=== PATIENT | male | born 1960 | race Caucasian/White ===

== ENCOUNTER → 2017-09-09 | Outpatient (CLI) | payer OTHER | LOC: M LRY 13:19 | DX: R50.9 Fever, unspecified (principal) ==

== ENCOUNTER → 2017-09-09 | Outpatient (REF) | payer OTHER | LOC: M SFHCLERA 13:26 | DX: R50.9 Fever, unspecified (principal) ==

== ENCOUNTER 2018-09-01 15:35 | Inpatient (IN) | payer OTHER ==
[~2018-09-01] VITALS: Ht 188 cm; Wt 119.2 kg
[~2018-09-01 15:35] MED LIST: B-100 OR; COLA100C2 OR; COLA50CA3 PO; COMPOUND CREAM TOP; FLEXERIL; IBUP800T OR; IBUP800T PO; MELOPOW; META800T82 PO; METH-447 PO; MOBIC OR; MULTIVIT OR; OXYC1TAB15 PO; PERC5TAB8; PERC5TAB8 PO; SKEL800T5 OR; SOMA350T PO; combination cream EXT
[2018-09-01] MEDS ORDERED: NS 1,000 ML IV ONE (16:30)
[2018-09-01] MEDS ORDERED: KETOROLAC 30 MG/ML VIAL (J1885) IV ONE (16:30)
[2018-09-01] MEDS ORDERED: ONDANSETRON 4MG/2ML VIAL (J2405) IV ONE (16:30)
[2018-09-01 17:24] LABS: BASO # 0.1 10^3/uL (0.0-0.2); BASO % 0.9 % (0.0-1.0); EOS # 0.2 10^3/uL (0.0-0.50); EOS % 4.2 % (0.0-3.0); HEMATOCRIT 45.4 % (42.0-52.0); HEMOGLOBIN 15.2 g/dl (13.5-17.5); LYMPH % 17.8 % (24.0-44.0); MEAN CORPUSCULAR HEMOGLOBIN 30.5 pg (27.0-33.0); MEAN CORPUSCULAR HGB CONC 33.5 g/dl (32.0-36.5); MEAN CORPUSCULAR VOLUME 91.2 fl (80.0-96.0); MONO # 0.4 10^3/uL (0.0-0.8); MONO % 8.1 % (0.0-5.0); NEUTROPHILS # 3.7 10^3/uL (1.8-7.7); NEUTROPHILS % 68.6 % (36.0-66.0); PLATELET COUNT, AUTOMATED 265 10^3/uL (150-450); RED BLOOD COUNT 4.98 10^6/uL (4.30-6.10); WHITE BLOOD COUNT 5.5 10^3/uL (4.0-10.0)
[2018-09-01 17:57] LABS: ALBUMIN 4.2 GM/DL (3.2-5.2); ALT/SGPT 975 U/L (12-78); BILIRUBIN,DIRECT 3.7 MG/DL (0.0-0.2); BLOOD UREA NITROGEN 12 MG/DL (7-18); CALCIUM LEVEL 9.2 MG/DL (8.5-10.1); CARBON DIOXIDE LEVEL 29 MEQ/L (21-32); CHLORIDE LEVEL 101 MEQ/L (98-107); CREATININE FOR GFR 1.08 MG/DL (0.70-1.30); GLOMERULAR FILTRATION RATE > 60.0 (>56); GLUCOSE, FASTING 106 MG/DL (70-100); LIPASE 139 U/L (73-393); SODIUM LEVEL 135 MEQ/L (136-145); TOTAL PROTEIN 7.1 GM/DL (6.4-8.2)
[2018-09-01] MEDS ORDERED: ZETI10TA30 PO (18:27)
[2018-09-01] MEDS ORDERED: PANT40TA3 PO (18:27)
[2018-09-01] MEDS ORDERED: FERR240T PO (18:27)
[2018-09-01] MEDS ORDERED: OXYC-517 PO (18:27)
[2018-09-01] MEDS ORDERED: FISH1000 PO (18:27)
[2018-09-01] MEDS ORDERED: PEPC10TA6 PO (18:27)
[2018-09-01] MEDS ORDERED: LEVO25TA34 PO (18:27)
[2018-09-01] MEDS ORDERED: MULTCAP PO (18:27)
[2018-09-01] MEDS ORDERED: LEVO100T54 PO (18:37)
--- NOTE | 2018-09-01 20:35 | HPEPDOC ---
General Date of Admission September 01, 2018 at 19:56 Attending Physician: OK TOBAR MD Chief Complaint The patient is a 58-year-old male admitted with a reason for visit of Acute Cholesystitis. History of Present Illness Patient is a 58-year-old male, past medical history significant for HLD, cervical disc disease with cervical radiculopathy. Patient presented to the emergency room from urgent care for evaluation of bilirubin in urine and abdominal pain. Patient reports he has had abdominal discomfort off and on for 2 years and had [facility]. In the past 4 days, his pain got worse and in the past 2 days. Nausea and significant abdominal pain. Today patient went to void and noticed his urine was very black and decided to go to the urgent care for further evaluation. From urgent care. He was sent to the emergency room for evaluation of bilirubin in his urine in the setting of abdominal pain. Ultrasound was abnormal for acute cholecystitis with duct obstruction. On assessment lab data was significant for total bilirubin of 6.0, direct bilirubin 3.7, AST 770, ALC 975, alkaline phosphatase 187. Hematology panel was remarkable for high neutrophil count of 68.6. Home Medications Scheduled Ezetimibe (Zetia) 10 Mg Tablet, 10 MG PO DAILY, (Reported) Ferrous Gluconate (Ferrous Gluconate) 240 Mg Tablet, 240 MG PO DAILY, (Reported) Levothyroxine Sodium (Levoxyl) 100 Mcg Tablet, 100 MCG PO DAILY, (Reported) Multivitamin (Multivitamins) 1 Each Capsule, 1 CAP PO DAILY, (Reported) [place]-3 Fatty Acids/Fish Oil (Fish Oil 1,000 mg Capsule) 1 Each Capsule, 1,000 MG PO DAILY, (Reported) Pantoprazole Sodium (Pantoprazole Sodium) 40 Mg Tablet.dr, 40 MG PO DAILY, (Reported) PATIENT IS OUT OF THIS MEDICATION AND HAS BEEN TAKING PEPCID Scheduled PRN Famotidine (Pepcid AC) 10 Mg Tablet, 10 MG PO BID PRN for HEARTBURN/INDIGESTION, (Reported) Oxycodone HCl (Oxycodone HCl) 5 Mg Tablet, 5 MG PO QID PRN for PAIN, (Reported) Allergies Coded Allergies: No Known Allergies (Unverified , 09/01/18) Past Medical History Medical History Cervical disc disease Hyperlipidemia Surgical History Left knee replacement. Right shoulder rotator cuff repair. Tonsils. Rhinoplasty. Family History Patient was adopted Social History * Smoker: Denies, chew Alcohol: occationally Drugs: denies A-FIB/CHADSVASC A-FIB History Current/History of A-Fib/PAF?: No Current Oral Anticoagulant The: No Review of Systems Other systems A 10 point pertinent review of systems was completed, negative except as stated in the history of present illness Physical Examination Other physical findings GENERAL: NAD SKIN : Jaundiced looking Warm, dry intact HEENT: Atraumatic, normocephalic, PERRL, moist mucous membrane CARDIOVASCULAR: Regular rate and rhythm, S1S2, no JVD, no edema, distal pulses + and palpable RESP: CTAB, no accessory muscle use noted ABDOMEN: BS+ non distended +tender RUQ MS: no joint deformities NEURO: Alert and oriented x 3, CN2-12 grossly intact PSYCH: no anxiety or agitation, appropriate mood and affect. Vital Signs Vital Signs Date Time Temp Pulse Resp B/P (MAP) Pulse Ox O2 Delivery O2 Flow Rate FiO2 09/01/18 17:41 98.2 54 18 144/84 (104) 98 Room Air Laboratory Data Labs 24H Laboratory Tests 2 09/01/18 00:00: Urine Color YELLOW, Urine Appearance CLEAR, Urine pH 6.0, Urine Specific [place] 1.002, Urine Protein NEGATIVE, Urine Glucose (UA) NEGATIVE, Urine Ketones NEGATIVE, Urine Blood NEGATIVE, Urine Nitrite NEGATIVE, Urine Bilirubin NEGATIVE, Urine Urobilinogen 0.2, Urine Leukocyte Esterase NEGATIVE, Urine WBC (Auto) 1, Urine RBC (Auto) 0, Urine Hyaline Casts (Auto) 0, Urine Bacteria (Aut o) NEGATIVE, Urine Squamous Epithelial Cells 0, Urine Sperm (Auto) 09/01/18 16:24: Immature Granulocyte % (Auto) 0.4, White Blood Count 5.5, Red Blood Count 4.98, Hemoglobin 15.2, Hematocrit 45.4, Mean Corpuscular Volume 91.2, Mean Corpuscular Hemoglobin 30.5, Mean Corpuscular Hemoglobin Concent 33.5, Red Cell Distribution Width 13.4, Platelet Count 265, Neutrophils (%) (Auto) 68.6H, Lymphocytes (%) (Auto) 17.8L, Monocytes (%) (Auto) 8.1H, Eosinophils (%) (Auto) 4.2H, Basophils (%) (Auto) 0.9, Neutrophils # (Auto) 3.7, Lymphocytes # (Auto) 1.0L, Monocytes # (Auto) 0.4, Eosinophils # (Auto) 0.2, Basophils # (Auto) 0.1, Nucleated Red Blood Cells % (auto) 0.0, Anion Gap 5L, Glomerular Filtration Rate > 60.0, Lactic Acid Level 1.0, Calcium Level 9.2, Aspartate Amino Transf (AST/SGOT) 770H, Alanine Aminotransferase (ALT/SGPT) 975H, Alkaline Phosphatase 187H, Total Bilirubin 6.0H, Direct Bilirubin 3.7H, Total Protein 7.1, Albumin 4.2, Albumin/Globulin Ratio 1.45, Lipase 139 CBC/BMP Laboratory Tests 09/01/18 16:24 Red Blood Count 4.98, Mean Corpuscular Volume 91.2, Mean Corpuscular Hemoglobin 30.5, Mean Corpuscular Hemoglobin Concent 33.5, Red Cell Distribution Width 13.4, Neutrophils (%) (Auto) 68.6 H, Lymphocytes (%) (Auto) 17.8 L, Monocytes (%) (Auto) 8.1 H, Eosinophils (%) (Auto) 4.2 H, Basophils (%) (Auto) 0.9, Neutrophils # (Auto) 3.7, Lymphocytes # (Auto) 1.0 L, Monocytes # (Auto) 0.4, Eosinophils # (Auto) 0.2, Basophils # (Auto) 0.1 Problems (1) Acute cholecystitis Problem Text: -Keep nothing by mouth -Normal saline at 150 mL per hour -ERCP tomorrow has been discussed with GI specialist -Patient has been started on antibiotic therapy with Zosyn -Follow ERCP findings and recommendations by specialists - (2) Common bile duct (CBD) obstruction Status: Acute Problem Text: -With acute cholecystitis -Antibiotic therapy with the plan for ERCP tomorrow -Has been discussed with surgical team who will see patient in consultation for input and recommendations -Continue to keep nothing by mouth for now (3) Nausea Problem Text: -Zofran as needed every 4 hours (4) Hyperlipidemia Problem Text: -Resume medication. Once patient is able to tolerate oral diet (5) DVT prophylaxis Problem Text: -lovenox SQ daily -hold for surgical intervention (6) Advance care planning Problem Text: -code status is full code Plan / VTE VTE Prophylaxis Ordered?: Yes OTUBELU,ADAORA C. WATCH TRAIN ASSEMBLER September 01, 2018 20:35
[2018-09-01] MEDS ORDERED: ONDANSETRON 4MG/2ML VIAL (J2405) IV PRN (20:45)
[2018-09-01] MEDS ORDERED: ENOXAPARIN 40 MG/0.4 ML SYRINGE (J1650) SC SCH (21:00)
[2018-09-01] MEDS: PIPERACILLIN/TAZOBACTAM SOD 3.375 GM in D5W MINI-BAG PLUS 50 ML IV SCH (21:39)
[2018-09-01] MEDS: NS 1,000 ML IV SCH (21:39)
[2018-09-01 22:13] VITALS: BP 136/82
--- NOTE | 2018-09-01 22:27 | REPVR ---
EXAM: MR Abdomen Without Contrast EXAM DATE/TIME: 09/01/2018 9:14 PM CLINICAL HISTORY: 58 years old, male; Pain and abnormal findings; Abnormal radiologic finding of the abdomen; Radiologic exam and body structure: US gb; Abdominal pain; Flank; Right upper quadrant (ruq); Additional info: Acute cholecystitis TECHNIQUE: Imaging protocol: MR of the abdomen without contrast. 3D rendering: MIP reconstructed images were created and reviewed. COMPARISON: GALLBLADDER US 09/01/2018 5:15 PM FINDINGS: Liver: There is a 8mm T2 hyperintense lesion noted in the lateral segment of the left lobe of the liver beneath the liver capsule. Gallbladder and bile ducts: The common bile duct measures 1.6 cm. The gallbladder is distended. There is mild gallbladder wall thickening in the hepatic cholecystic space. No gallstones are seen. The common bile duct tapers normally. Pancreas: There is no pancreatic ductal dilatation. No mass seen. Spleen: Unremarkable. No splenomegaly. Adrenals: Unremarkable. No mass. Kidneys and ureters: A 7 mm T2 hyperintense lesion seen in the lower pole of the right kidney. 2 T2 hyperintense lesion seen in the upper pole of the right kidney. One measures 1 cm and a second 4 mm. There is mild dilatation of the central renal pelvis of the left kidney or a parapelvic cyst. Stomach and bowel: Unremarkable. Intraperitoneal space: No fluid collection. Arteries: No abdominal aortic aneurysm. Soft tissues: Unremarkable. IMPRESSION: 1. Dilated common bile duct and mild intrahepatic ductal dilatation with mild gallbladder wall thickening. No gallstones seen. No choledocholithiasis. Distal biliary stricture, or neoplasm are among the diagnostic considerations. No choledocholithiasis seen. 2. 3 T2 hyperintense lesions seen in the right kidney. Left-sided dilated renal pelvis versus parapelvic cyst. Please see below comment section per recommendations on follow 3. 8mm T2 hyperintense lesion in the lateral segment of left lobe of the liver. This is not fully characterized on this examination. Followup MR examination in one year. COMMENT: Consistent with the [employer]'s Incidental Findings Committee Report (J Am Jadon Radiol 2010): Unless the patient's specific circumstances suggest otherwise, any liver lesion 0.5 cm or less, any cystic kidney lesion less than 1.0 cm, and/or any adrenal lesion 1.0 cm or less not otherwise characterized in this report as possessing suspicious or indeterminate imaging features is/are highly likely to be benign and do not require follow-up imaging or biopsy. Electronically signed by: Glendy Mcclain On 09/01/2018 22:26:23 PM
[2018-09-01] MEDS: MORPHINE 4 MG/ML 1ML VIAL/SYRINGE (J2270) IV PRN (22:49)
[2018-09-02 02:00] VITALS: BP 141/76
[2018-09-02] MEDS: PIPERACILLIN/TAZOBACTAM SOD 3.375 GM in D5W MINI-BAG PLUS 50 ML IV SCH ×4 (02:08→20:35)
[2018-09-02] MEDS: MORPHINE 4 MG/ML 1ML VIAL/SYRINGE (J2270) IV PRN ×5 (02:46→22:57)
[2018-09-02 05:56] LABS: HEMATOCRIT 38.7 % (42.0-52.0); HEMOGLOBIN 12.6 g/dl (13.5-17.5); MEAN CORPUSCULAR HEMOGLOBIN 29.6 pg (27.0-33.0); MEAN CORPUSCULAR HGB CONC 32.6 g/dl (32.0-36.5); MEAN CORPUSCULAR VOLUME 90.8 fl (80.0-96.0); PLATELET COUNT, AUTOMATED 195 10^3/uL (150-450); RED BLOOD COUNT 4.26 10^6/uL (4.30-6.10); WHITE BLOOD COUNT 4.6 10^3/uL (4.0-10.0)
[2018-09-02 06:00] VITALS: BP 119/80
[2018-09-02 06:34] LABS: ALBUMIN 3.1 GM/DL (3.2-5.2); BILIRUBIN,TOTAL 4.8 MG/DL (0.2-1.0); CALCIUM LEVEL 7.7 MG/DL (8.5-10.1); CREATININE FOR GFR 1.42 MG/DL (0.70-1.30); GLOMERULAR FILTRATION RATE 54.9 (>56); POTASSIUM SERUM 4.3 MEQ/L (3.5-5.1); TOTAL PROTEIN 6.1 GM/DL (6.4-8.2)
[2018-09-02] MEDS: NS 1,000 ML IV SCH ×4 (06:34→20:36)
[2018-09-02] MEDS ORDERED: ONDANSETRON 4MG/2ML VIAL (J2405) As Ordered ONE ×2 (07:19→11:26)
[2018-09-02] MEDS ORDERED: dexameTHASONE 4 MG/ML 1ML VIAL (J1100) As Ordered ONE (07:19)
[2018-09-02] MEDS ORDERED: ROCURONIUM BROMIDE 50 MG/5 ML VIAL As Ordered ONE (07:19)
[2018-09-02] MEDS ORDERED: LIDOCAINE 2% INJ 100 MG/5 ML SDV (FOR ANES.) As Ordered ONE (07:19)
--- NOTE | 2018-09-02 07:57 | REP ---
REASON: Right upper quadrant pain. There are no priors for comparison. Multiple sonographic images of the liver show the hepatic parenchymal echo pattern to be within normal limits. There is intrahepatic and extrahepatic ductal dilatation. The common bile duct measures 12 mm. The gallbladder is somewhat enlarged and hydropic in appearance with a thickened wall measuring 6 mm. There is no pericholecystic edema. Low level echoes are seen throughout the dependent portion of the gallbladder consistent with sludge. The technologist has indicated that the patient has a positive sonographic Curran sign. The imaged portion of the pancreas and right kidney are unremarkable. IMPRESSION: There is evidence of gallbladder disease as described above. Whether this represents acute disease or chronic disease or acute disease on chronic change cannot be determined by this exam. This needs to be correlated clinically. Electronically Signed by Kaiden Brown DO 09/02/2018 08:30 A
[2018-09-02] MEDS: PANTOPRAZOLE 40MG INJ (PROTONIX) (C9113) IV SCH (09:00)
[2018-09-02] MEDS ORDERED: PROPOFOL 200 MG/20 ML VIAL As Ordered ONE (09:04)
[2018-09-02] MEDS ORDERED: fentaNYL 100 MCG/2 ML INJECTION (J3010) As Ordered ONE (09:04)
[2018-09-02] MEDS ORDERED: MIDAZOLAM INJ 2 MG/2 ML VIAL (J2250) As Ordered ONE (09:05)
[2018-09-02] MEDS ORDERED: ISOVUE-300 61% 50ML VIAL (Q9967) As Ordered ONE (09:14)
[2018-09-02] MEDS ORDERED: SUGAMMADEX SODIUM 500 MG/5 ML VIAL (BRIDION) As Ordered ONE (10:40)
[2018-09-02] MEDS ORDERED: ONDANSETRON 4MG/2ML VIAL (J2405) IV PRN (11:30)
[2018-09-02] MEDS ORDERED: LR 1,000 ML IV SCH (11:30)
[2018-09-02] MEDS ORDERED: fentaNYL 100 MCG/2 ML INJECTION (J3010) IV PRN (11:30)
[2018-09-02] MEDS ORDERED: NORCO, ANEXSIA 5/325MG TABLET (HYDROcodone/ACETAMINOPHEN) PO PRN (11:30)
--- NOTE | 2018-09-02 11:37 | REP ---
41 spot views were obtained during intraoperative ERCP. 2 minutes and 34 seconds of fluoroscopy time was provided Dr. Kent for the exam. Varying stages of opacification of the common bile duct is noted throughout the examination. Final image shows a common bile duct stent in place. Electronically Signed by Kaiden Brown DO 09/02/2018 11:42 A
--- NOTE | 2018-09-02 12:08 | IPNPDOC ---
Date Seen The patient was seen on 09/02/18. Progress Note SUBJECTIVE: Patient was seen and examined this morning. He continues to complain of pain in his right upper quadrant. He states that the pain seems to worsen when he leans forward. He denies fevers, chills, nausea, or vomiting. There have been no adverse events reported overnight. OBJECTIVE PHYSICAL EXAMINATION: VITAL SIGNS: Please see below. GENERAL: Awake, alert, and oriented. Appears in no acute distress. Lying in bed. Appears comfortable HEENT: Atrumatic, normocephalic. Eyes are nonicteric. trachea is midline. Dentition is good CARDIOVASCULAR: Normal S1, S2. Regular rate and rhythm. No clicks rubs or murmurs. RESPIRATORY: Clear vesicular breath sounds bilaterally with good respiratory effort. No wheezes, rhonci, or rales ABDOMINAL: Soft, nondistended. Tenderness to palpation of right upper quadrant. No rebound tenderness. No guarding. No masses or hernias. Positive bowel sounds EXTREMITIES: No edema. Full and equal pulses in bilateral upper and lower extremities NEUROLOGICAL: No focal neurological deficits PSYCHOLOGICAL: Mood and affect appear appropriate LABORATORY DATA, IMAGING STUDIES, MICROBIOLOGY: Please see below. DVT prophylaxis ordered?: YES ASSESSMENT AND PLAN: Patient is a 58 year old male with a past medical history significant for hyperlipidemia, cervical disc disease w/ cervical radiculopathy who presented to the [facility] ER with abdominal pain. Patient has a history of abdominal pain on and off for at least the past two years. In the ER the patient had elevated bilirubin, LFT's and WBC. He had a gallbladder ultrasound consistent with acute cholecystitis PROBLEMS: 1. Acute Choleycystits -Patient presented with right upper quadrant pain. This has been chronic over at least the past two years. He has had elevated bilirubin, LFTs, and increased WBCs. -Patient has received pain medication and Zosyn. Will continue. -Surgical consultation has been placed and recommendations greatly appreciated 2. Choledocholithiasis -Gastroenterology consultation has been placed. Patient to receive ERCP with likely stent placement. Recommendations and help greatly appreciated 3. ARMANDO -Patient has had an increase in his creatinine. It is unclear what his baseline is. -He received a dose of toradol in the ER yesterday. Will avoid nephrotoxic agents -Will discontinue lovenox and change to hepatin SQ for DVT propyhlaxis 4. DVT prophylaxis -Discontinue Lovenox due to increased Cr. -Heparin SQ q12h A-FIB/CHADSVASC A-FIB History Current/History of A-Fib/PAF?: No VS, I&O, 24H, Fishbone Vital Signs/I&O Vital Signs Date Time Temp Pulse Resp B/P (MAP) Pulse Ox O2 Delivery O2 Flow Rate FiO2 09/02/18 11:45 98.4 66 18 142/79 (100) 97 09/01/18 22:07 Room Air I&O- Last 24 Hours up to 6 AM 09/02/18 06:00 Intake Total 0 ml Output Total 225 ml Balance -225 ml Laboratory Data 24H LABS Laboratory Tests 2 09/01/18 16:24: Immature Granulocyte % (Auto) 0.4, White Blood Count 5.5, Red Blood Count 4.98, Hemoglobin 15.2, Hematocrit 45.4, Mean Corpuscular Volume 91.2, Mean Corpuscular Hemoglobin 30.5, Mean Corpuscular Hemoglobin Concent 33.5, Red Cell Distribution Width 13.4, Platelet Count 265, Neutrophils (%) (Auto) 68.6H, Lymphocytes (%) (Auto) 17.8L, Monocytes (%) (Auto) 8.1H, Eosinophils (%) (Auto) 4.2H, Basophils (%) (Auto) 0.9, Neutrophils # (Auto) 3.7, Lymphocytes # (Auto) 1.0L, Monocytes # (Auto) 0.4, Eosinophils # (Auto) 0.2, Basophils # (Auto) 0.1, Nucleated Red Blood Cells % (auto) 0.0, Anion Gap 5L, Glomerular Filtration Rate > 60.0, Lactic Acid Level 1.0, Calcium Level 9.2, Aspartate Amino Transf (AST/SGOT) 770H, Alanine Aminotransferase (ALT/SGPT) 975H, Alkaline Phosphatase 187H, Total Bilirubin 6.0H, Direct Bilirubin 3.7H, Total Protein 7.1, Albumin 4.2, Albumin/Globulin Ratio 1.45, Lipase 139 09/02/18 05:18: Nucleated Red Blood Cells % (auto) 0.0, Anion Gap 6L, Glomerular Filtration Rate 54.9L, Calcium Level 7.7#L, Aspartate Amino Transf (AST/SGOT) 490H, Alanine Aminotransferase (ALT/SGPT) 756H, Alkaline Phosphatase 180H, Total Bilirubin 4.8H, Direct Bilirubin 3.0H, Total Protein 6.1L, Albumin 3.1#L, Albumin/Globulin Ratio 1.03, Blood Urea Nitrogen 12, Creatinine 1.42H, Sodium Level 140, Potassium Level 4.3, Chloride Level 105, Carbon Dioxide Level 29 CBC/BMP Laboratory Tests 09/01/18 16:24 Red Blood Count 4.98, Mean Corpuscular Volume 91.2, Mean Corpuscular Hemoglobin 30.5, Mean Corpuscular Hemoglobin Concent 33.5, Red Cell Distribution Width 13.4, Neutrophils (%) (Auto) 68.6 H, Lymphocytes (%) (Auto) 17.8 L, Monocytes (%) (Auto) 8.1 H, Eosinophils (%) (Auto) 4.2 H, Basophils (%) (Auto) 0.9, Neutrophils # (Auto) 3.7, Lymphocytes # (Auto) 1.0 L, Monocytes # (Auto) 0.4, Eosinophils # (Auto) 0.2, Basophils # (Auto) 0.1 09/02/18 05:18 Red Blood Count 4.26 L, Mean Corpuscular Volume 90.8, Mean Corpuscular Hemog lobin 29.6, Mean Corpuscular Hemoglobin Concent 32.6, Red Cell Distribution Width 13.6, Calcium Level 7.7 #L, Aspartate Amino Transf (AST/SGOT) 490 H, Alanine Aminotransferase (ALT/SGPT) 756 H, Alkaline Phosphatase 180 H, Total Bilirubin 4.8 H, Direct Bilirubin 3.0 H, Total Protein 6.1 L, Albumin 3.1 #L GME ATTESTATION GME ATTESTATION My faculty preceptor for this patient encounter was physically present during the encounter and was fully available. All aspects of the patient interview, examination, medical decision making process, and medical care plan development were reviewed and approved by the faculty preceptor. The faculty preceptor is aware and concurs with the plan as stated in the body of this note and will attest to such by his/her cosignature. ATTENDING NOTE I saw and evaluated the patient. I agree with the findings and plan of care as documented in the resident's note CATIA THOMPSON DO September 02, 2018 12:08 HARMEET BALES MD September 03, 2018 09:13
--- NOTE | 2018-09-02 12:09 | ROOR ---
Patient Name: Louie Benson Procedure Date: 09/02/2018 9:40 AM Date of : 1960 Age: 58 Room: Main OR Gender: Male Note Status: Finalized Procedure: ERCP Indications: Abdominal pain of suspected biliary origin, Abnormal MRCP, Biliary dilation on Ultrasound, Elevated liver enzymes, Elevated bilirubin Providers: Asif KENT MD Referring MD: 2. [facility] Inpatient, PCP: Vipin Baker Md, [facility], Admin., Requesting Provider: Medicines: General Anesthesia Complications: No immediate complications. Procedure: Pre-Anesthesia Assessment: - The heart rate, respiratory rate, oxygen saturations, blood pressure, adequacy of pulmonary ventilation, and response to care were monitored throughout the procedure. The Duodenoscope was introduced through the mouth, and advanced to the duodenum and used to inject contrast into the bile duct. The ERCP was accomplished without difficulty. The patient tolerated the procedure well. Findings: The professor of environmental science film was normal. The esophagus was successfully intubated under direct vision. The scope was advanced to a normal major papilla in the descending duodenum without detailed examination of the pharynx, larynx and associated structures, and upper GI tract. The upper GI tract was grossly normal. A wire was passed into the biliary tree. The bile duct was then deeply cannulated over the guidewire. Contrast was injected. I personally interpreted the bile duct images. Ductal flow of contrast was adequate. Image quality was adequate. Contrast extended to the entire biliary tree. Opacification of the entire biliary tree except for the gallbladder was successful. The intrahepatic ducts are diffusely dilated. The maximum diameter of the main duct was 17 mm at the common hepatic/common bile duct. There is an abrupt decrease of diameter of the bile duct into the distal third of the bile duct/ampulla. The lower third of the main bile duct contained a single stenosis 5 to 7 mm in length. The biliary tree was otherwise normal. An 8 mm biliary sphincterotomy was made with a monofilament traction (standard) sphincterotome using ERBE electrocautery. Copious bile and contrast drained well post sphincterotomy. There was self limited oozing from the sphincterotomy which did not require treatment. The lower third of the main bile duct was biopsied with a cold forceps for histology. Cells for cytology were obtained by brushing in the lower third of the main bile duct. The biliary tree was swept with a 15 mm balloon starting at the bifurcation. Nothing was found. One 10 Fr by 6 cm temporary stent with a single external flap and a single internal flap was placed into the common bile duct. Bile flowed through the stent. The stent was in good position. Impression: - The main and intrahepatic bile ducts are dilated. - A single short ampullary/distal biliary stricture was found in the lower third of the main bile duct. The stricture was firm/fibrotic and indeterminate. No spontaneous drainage of contrast/bile was initially observed. A biliary sphincterotomy was performed. - A biliary sphincterotomy was performed with good drainage of copious contrast and bile. - The stricture was biopsied and brushed for cytology. - The biliary tree was swept and nothing was found. - One temporary stent was placed into the common bile duct. Recommendation: - Observe patient's clinical course. - Await path results. - Return to endoscopist for stent removal via EGD or exchange via repeat ERCP (depending on pathology results) in 3 months. - Return to my office in 3 months. Asif Kent MD Asif KENT MD 09/02/2018 12:08:39 PM Electronically signed by Asif KENT MD Number of Addenda: 0 Note Initiated On: 09/02/2018 9:40 AM Estimated Blood Loss: Estimated blood loss: none.
[2018-09-02 17:00] LABS: CALCIUM LEVEL 7.8 MG/DL (8.5-10.1); CREATININE FOR GFR 1.44 MG/DL (0.70-1.30); POTASSIUM SERUM 4.3 MEQ/L (3.5-5.1)
[2018-09-02 18:00] VITALS: BP 139/85
[2018-09-02] MEDS: HEPARIN SOD (PORCINE) 5000 UNITS/ML VIAL SQ SCH (20:35)
[2018-09-02 22:00] VITALS: BP 138/78
[2018-09-03] MEDS: PIPERACILLIN/TAZOBACTAM SOD 3.375 GM in D5W MINI-BAG PLUS 50 ML IV SCH ×2 (01:59→09:14)
[2018-09-03 02:00] VITALS: BP 124/58
[2018-09-03] MEDS: NS 1,000 ML IV SCH (03:58)
[2018-09-03 06:00] VITALS: BP 143/81
[2018-09-03 06:27] LABS: ALT/SGPT 494 U/L (12-78); BILIRUBIN,DIRECT 0.6 MG/DL (0.0-0.2); BILIRUBIN,TOTAL 1.2 MG/DL (0.2-1.0); TOTAL PROTEIN 5.6 GM/DL (6.4-8.2)
[2018-09-03 08:01] LABS: HEMATOCRIT 37.8 % (42.0-52.0); HEMOGLOBIN 12.3 g/dl (13.5-17.5); MEAN CORPUSCULAR HEMOGLOBIN 30.9 pg (27.0-33.0); MEAN CORPUSCULAR HGB CONC 32.5 g/dl (32.0-36.5); PLATELET COUNT, AUTOMATED 193 10^3/uL (150-450); RED BLOOD COUNT 3.98 10^6/uL (4.30-6.10)
[2018-09-03 08:08] LABS: BLOOD UREA NITROGEN 8 MG/DL (7-18); CALCIUM LEVEL 7.7 MG/DL (8.5-10.1); CARBON DIOXIDE LEVEL 30 MEQ/L (21-32); CHLORIDE LEVEL 108 MEQ/L (98-107); CREATININE FOR GFR 1.04 MG/DL (0.70-1.30); GLOMERULAR FILTRATION RATE > 60.0 (>56); GLUCOSE, FASTING 93 MG/DL (70-100); POTASSIUM SERUM 3.7 MEQ/L (3.5-5.1); SODIUM LEVEL 141 MEQ/L (136-145)
[2018-09-03] MEDS: PANTOPRAZOLE 40MG INJ (PROTONIX) (C9113) IV SCH (09:13)
[2018-09-03] MEDS: HEPARIN SOD (PORCINE) 5000 UNITS/ML VIAL SQ SCH (09:14)
[2018-09-03 10:00] VITALS: BP 135/73
--- NOTE | 2018-09-03 11:29 | CR ---
DATE OF CONSULTATION: 09/02/2018 REASON FOR CONSULTATION: Possible acute cholecystitis. HISTORY OF PRESENT ILLNESS The patient is a 58-year-old male with cervical disk disease, hyperlipidemia presents to the emergency room with complaints of dark-colored urine and some upper abdominal pain. He has been dealing with this discomfort of his upper abdomen for a couple of years now. [facility] He has been known to have dilated common bile duct. It has been monitored and has not changed, however, with the increasing tea-colored urine he decided to come in to the emergency room for evaluation. In the ER he was found to have a dilated bile duct, dilated ultrasound and elevated LFTs and bilirubin. He was admitted by the hospitalist and Dr. Kent was already consulted and is planning an ERCP for this morning. The MRCP did not show any signs of gallstones or masses, but it does show the distended gallbladder, distended bile ducts with possible narrowing towards the distal common bile duct and for that reason he is getting the ERCP done today. His pains have not really changed much in the last 2 years. There is no significant changes in that acutely at this time. The main change was just the dark-colored urine. That is the only reason he is here. PAST MEDICAL HISTORY: Cervical disk disease, hyperlipidemia. PAST SURGICAL HISTORY: Left knee replacement, rotator cuff repair in the right shoulder, tonsillectomy, rhinoplasty. ALLERGIES: None. HOME MEDICATIONS: Please see medical record. FAMILY HISTORY: Noncontributory. SOCIAL HISTORY: Denies drug, alcohol, tobacco abuse. REVIEW OF SYSTEMS: Pertinent positives and negatives as stated in the HPI. PHYSICAL EXAMINATION General: Alert and oriented times three. No acute distress. Vitals: Temperature 96.9, pulse 57, respirations 17, blood pressure 119/80, pulse ox 96% on room air. HEENT: Pupils equal round react to light and accommodation. Heart: S1, S2. Regular rate and rhythm. Lungs: Clear to auscultation bilaterally. Abdomen: Soft, slight tenderness in the right upper quadrant. No rebound, guarding or rigidity. Extremities: No clubbing, cyanosis or edema. LABORATORY DATA White count 4.6, hemoglobin 12.6, total bilirubin 4.8, direct bilirubin 3, AST 490, ALT 756, alkaline phosphatase 180. IMAGING STUDIES MRCP shows a dilated common bile duct up to 1.6 cm. Mild gallbladder wall thickening. No gallstones seen. No choledocholithiasis. There is a distal biliary stricture or neoplasm among the diagnostic considerations. No choledocholithiasis. ASSESSMENT/PLAN The patient is a 58-year-old male with hyperbilirubinemia, elevated liver enzymes and possible biliary stricture on MRCP. He is going for an ERCP this morning with Dr. Kent. At this time the distended gallbladder is likely reactive to the distal biliary stricture. There is no indication for any surgery at this time. We will followup with the pathology and the brushings that Dr. Kent obtains today and if there is anything that requires surgical intervention we can discuss that at an outpatient visit and plan accordingly. Thank you for consultation.
--- NOTE | 2018-09-03 13:41 | DS.PDOC ---
Discharge Summary General Date of Admission September 01, 2018 at 19:56 Date of Discharge 09/03/2018 Discharge Summary DISCHARGE DIAGNOSIS:Distal biliary stricture SECONDARY DIAGNOSIS: 1.Acute kidney injury 2.Dyslipidemia 3. Hypothyroidism 4. Gastroesophageal reflux disease 5. Chronic pain PROCEDURES PERFORMED DURING STAY: ERCP. CONSULTANTS: Dr. Mishra general surgery, Dr. Lam gastroenterology [facility] COURSE: Patient is 58-year-old man who presented with right upper quadrant pain that was initially concern for acute cholecystitis or choledocholithiasis resuscitation ultimately liver function tests and elevated alkaline phosphatase and gallbladder ultrasound imaging. He did have an MRCP that was more suggestive of a distal biliary stricture. GI did take the patient for an ERCP 09/02/2018 tolerated the procedure well he had a sphincterotomy and stent placement with significant drainage following this the biliary fluid. Following this his symptoms are completely resolved his liver function tests ret urned to baseline. DISCHARGE MEDICATIONS: Please see below. ALLERGIES: Please see below. SUBJECTIVE: Patient tells me that he is feeling well he has some mild soreness in his epigastrium but otherwise the right upper quadrant pain that he presented has resolved otherwise patient denies chest pain, shortness, breath, nausea, vomiting, fevers, chills OBJECTIVE PHYSICAL EXAMINATION: VITAL SIGNS: Please see below. GENERAL: Pleasant man of ambulating around his room independently is in good spirits awake alert oriented speaking in complete sentences no acute distress HEENT: Moist mucous membranes no elevation and CVP CARDIOVASCULAR: S1 S2 regular no additional heart sounds appreciated. RESPIRATORY: Clear to auscultation bilaterally. ABDOMINAL: Bowel sounds present abdomen soft and very mild epigastric tenderness to deep palpation EXTREMITIES: No clubbing, cyanosis, edema NEUROLOGICAL: Spontaneously moves all 4 extremities cranial 2 through 12 grossly intact, no gross focal deficits appreciated PSYCHOLOGICAL: Appropriate LABORATORY DATA, MICROBIOLOGY: Please see below. IMAGING STUDIES: [Gallbladder ultrasound:There is evidence of gallbladder disease as described above. Whether this represents acute disease or chronic disease or acute disease on chronic change cannot be determined by this exam. This needs to be correlated clinically Abdominal MRI:1. Dilated common bile duct and mild intrahepatic ductal dilatation with mild gallbladder wall thickening. No gallstones seen. No choledocholithiasis. Distal biliary stricture, or neoplasm are among the diagnostic considerations. No choledocholithiasis seen. 2. 3 T2 hyperintense lesions seen in the right kidney. Left-sided dilated renal pelvis versus parapelvic cyst. Please see below comment section per recommendations on follow 3. 8mm T2 hyperintense lesion in the lateral segment of left lobe of the liver. This is not fully characterized on this examination. Followup MR examination in one year. DVT prophylaxis ordered: Heparin ASSESSMENT AND PLAN: This is a 58-year-old man with distal biliary stricture. PROBLEMS: 1. Distal biliary stricture: Known to the patient has been evaluated and followed with serial imaging by GI in [facility]. He status post enterotomy stent placement during this auscultation with complete resolution of his symptoms. He will need to have a stent removed found to have a liver lesion in the left lobe that require repeat MR in 1 year. He'll follow-up with GI here locally for stent removal for follow-up with GI in [place] for stent removal liver lobe lesion follow-up both options were offered the patient. His right upper quadrant abdominal pain has completely resolved at this time. He is discharged home on his usual pain medication and nothing new 2. Hypothyroidism: Is continued on Synthroid. 3. Gastroesophageal reflux disease: He is continued on pantoprazole and Pepcid 4. Dyslipidemia: He is continued on sodium. 5. Iron deficiency anemia: He is continued on ferrous gluconate 6. Chronic pain: He is continued on his home oxycodone DISPOSITION: Home he is independent of his ADLs DISCHARGE CONDITION: Resolved she is back to baseline. FOLLOW UP: Follow-up with PCP within 7 days follow-up with GI within 2-3 weeks [place] [facility] or local GI here. He'll also need follow-up biopsy results for his sphincterotomy. He is to avoid NSAIDs for 10 days and return to the ER if symptoms worsen ACTIVITY: As tolerated. DIET: As prior to admission TIME SPENT ON DISCHARGE: 50 minutes Vital Signs/I&Os Vital Signs Date Time Temp Pulse Resp B/P (MAP) Pulse Ox O2 Delivery O2 Flow Rate FiO2 09/03/18 10:00 97.8 67 18 135/73 (93) 99 09/01/18 22:07 Room Air I&O- Last 24 Hours up to 6 AM 09/03/18 05:59 Intake Total 1780 ml Output Total 1925 ml Balance -145 ml Laboratory Data Labs 24H Laboratory Tests 2 09/02/18 16:24: Anion Gap 6L, Glomerular Filtration Rate 54.0L, Blood Urea Nitrogen 11, Creatinine 1.44H, Sodium Level 140, Potassium Level 4.3, Chloride Level 106, Carbon Dioxide Level 28, Calcium Level 7.8L 09/03/18 05:18: Anion Gap 3L, Glomerular Filtration Rate > 60.0, Calcium Level 7.7L, Aspartate Amino Transf (AST/SGOT) 165H, Alanine Aminotransferase (ALT/SGPT) 494H, Alkaline Phosphatase 159H, Total Bilirubin 1.2#H, Direct Bilirubin 0.6H, Total Protein 5.6L, Albumin 3.0L, Albumin/Globulin Ratio 1.15 09/03/18 07:46: Nucleated Red Blood Cells % (auto) 0.0 CBC/BMP Laboratory Tests 09/02/18 16:24 Calcium Level 7.8 L 09/03/18 05:18 09/03/18 07:46 Red Blood Count 3.98 L, Mean Corpuscular Volume 95.0, Mean Corpuscular Hemoglobin 30.9, Mean Corpuscular Hemoglobin Concent 32.5, Red Cell Distribution Width 13.6 Discharge Medications Scheduled Ezetimibe (Zetia) 10 Mg Tablet, 10 MG PO DAILY, (Reported) Ferrous Gluconate (Ferrous Gluconate) 240 Mg Tablet, 240 MG PO DAILY, (Reported) Levothyroxine Sodium (Levoxyl) 100 Mcg Tablet, 100 MCG PO DAILY, (Reported) Multivitamin (Multivitamins) 1 Each Capsule, 1 CAP PO DAILY, (Reported) [place]-3 Fatty Acids/Fish Oil (Fish Oil 1,000 mg Capsule) 1 Each Capsule, 1,000 MG PO DAILY, (Reported) Pantoprazole Sodium (Pantoprazole Sodium) 40 Mg Tablet.dr, 40 MG PO DAILY, (Reported) PATIENT IS OUT OF THIS MEDICATION AND HAS BEEN TAKING PEPCID Scheduled PRN Famotidine (Pepcid AC) 10 Mg Tablet, 10 MG PO BID PRN for HEARTBURN/INDIGESTION, (Reported) Oxycodone HCl (Oxycodone HCl) 5 Mg Tablet, 5 MG PO QID PRN for PAIN, (Reported) Allergies Coded Allergies: No Known Allergies (Unverified , 09/01/18) HARMEET BALES MD September 03, 2018 13:41
== END 2018-09-03 11:00 | disposition home or self-care (01) | DRG 445 ==
LOC: M ED 15:35 → M ED INP 19:56 → M MSPAV 22:13
PROVIDERS: ADMIT Internal Medicine; ATTEND Internal Medicine
PROC: 0F7D8DZ Dilation of Pancreatic Duct with Intraluminal Device, Via Natural or Artificial Opening Endoscopic (ICD-10-PCS; principal; 2018-09-02 09:00)
DX: K83.1 Obstruction of bile duct (principal); N17.9 Acute kidney failure, unspecified; E78.5 Hyperlipidemia, unspecified; E03.9 Hypothyroidism, unspecified; K21.9 Gastro-esophageal reflux disease without esophagitis; G89.29 Other chronic pain; D50.9 Iron deficiency anemia, unspecified; Z79.899 Other long term (current) drug therapy; Z96.652 Presence of left artificial knee joint

== ENCOUNTER 2018-11-01 07:15 | Day surgery (SDC) | payer OTHER ==
[~2018-11-01] VITALS: Ht 188 cm; Wt 116.1 kg
[~2018-11-01 07:15] MED LIST changes: +FERR240T PO; +FISH1000 PO; +ISOVUE-300 61% 50ML VIAL (Q9967) As Ordered ONE; +KETAMINE HCL 200 MG/20 ML VIAL As Ordered ONE; +LEVO100T54 PO; +LEVO25TA34 PO; +LIDOCAINE 1% MDV 20ML VIAL SQ PRN; +LIDOCAINE 2% INJ 100 MG/5 ML SDV (FOR ANES.) As Ordered ONE; +LR 1,000 ML IV ONE; +MIDAZOLAM INJ 2 MG/2 ML VIAL (J2250) As Ordered ONE; +MULTCAP PO; +NS 1,000 ML IV ONE; +ONDANSETRON 4MG/2ML VIAL (J2405) As Ordered ONE; +OXYC-517 PO; +PANT40TA3 PO; +PEPC10TA6 PO; +PROPOFOL 200 MG/20 ML VIAL As Ordered ONE; +ROCURONIUM BROMIDE 50 MG/5 ML VIAL As Ordered ONE; +ZETI10TA30 PO; +fentaNYL 100 MCG/2 ML INJECTION (J3010) As Ordered ONE
[2018-11-01] MEDS ORDERED: dexameTHASONE 4 MG/ML 1ML VIAL (J1100) As Ordered ONE (07:17)
[2018-11-01] MEDS ORDERED: KETOROLAC 60 MG/2 ML VIAL (J1885) As Ordered ONE (08:33)
[2018-11-01] MEDS ORDERED: SUGAMMADEX SODIUM 500 MG/5 ML VIAL (BRIDION) As Ordered ONE (08:45)
--- NOTE | 2018-11-01 09:04 | ECGEPIP ---
[facility] Test Date: 2018-11-01 Pat Name: BELLA CARLSON Department: Room: - Gender: Male Clinical Instructor: : 1960 Requested By: Tre Robles Order Number: [id number] Reading MD: Oscar Vazquez Measurements Intervals [place] Rate: 51 P: 43 CA: 196 QRS: 1 QRSD: 103 T: 31 QT: 412 QTc: 382 Interpretive Statements SINUS BRADYCARDIA Otherwise normal Electronically Signed on 11-01-2018 9:04:29 EDT by Oscar Vazquez
[2018-11-01] MEDS ORDERED: LR 1,000 ML IV SCH (09:15)
[2018-11-01] MEDS ORDERED: NORCO, ANEXSIA 5/325MG TABLET (HYDROcodone/ACETAMINOPHEN) PO PRN (09:15)
[2018-11-01] MEDS ORDERED: ONDANSETRON 4MG/2ML VIAL (J2405) IV PRN (09:15)
--- NOTE | 2018-11-01 09:18 | ROOR ---
Patient Name: Louie Benson Procedure Date: 11/01/2018 7:22 AM Date of : 1960 Age: 58 Room: [facility] Gender: Male Note Status: Finalized Procedure: ERCP Indications: Jaundice, Biliary stent removal, Diagnostic sampling (previously treated stenotic papilla. Etiology for papillary stenosis is uncertain. This procedure was done to re evaluate and resample) Providers: Asif KENT MD Referring MD: Rosy BAE, OP Clinic Rosy BAE [facility], Admin., Vipin Baker Md Requesting Provider: Medicines: General Anesthesia Complications: No immediate complications. Procedure: Pre-Anesthesia Assessment: - The heart rate, respiratory rate, oxygen saturations, blood pressure, adequacy of pulmonary ventilation, and response to care were monitored throughout the procedure. The Duodenoscope was introduced through the mouth, and advanced to the duodenum and used to inject contrast into the bile duct. The ERCP was accomplished without difficulty. The patient tolerated the procedure well. Findings: A biliary stent was visible on the supervisor waterworks film. One stent was removed from the biliary tree using a snare. A previous sphincterotomy is seen, and the papilla is widely patent. A straight Roadrunner wire was passed into the biliary tree. The bile duct was then deeply cannulated over the guidewire. Contrast was injected. The occlusion cholangiogram was normal. I see no biliary stricture, dilation or any other abnormalities. The biliary tree was swept with a 9 mm balloon starting at the bifurcation. Small debris/probably residual stent concretions were swept from the duct. I do not see a stricture today. Papilla is widely patent and drains well. The lower third of the main bile duct was biopsied with a cold forceps for histology. Cells for cytology were obtained by brushing in the lower third of the main bile duct. Impression: - One stent was removed from the biliary tree. - A previous sphincterotomy is present and widely patent. - The biliary tree is normal. There is no further stricture or any biliary dilation. - The biliary tree was swept and small debris (likely stent concretions) was found. - Biopsy was performed in the lower third of the main duct. - Cells for cytology obtained in the lower third of the main duct. Recommendation: - Telephone endoscopist for pathology results in 2 weeks. - Observe patient's clinical course. - I anticipate no further need for intervention. - Perform MRCP in 6 months. - Return to my office in 6 months. Asif Kent MD Asif KENT MD 11/01/2018 9:17:47 AM Electronically signed by Asif KENT MD Number of Addenda: 0 Note Initiated On: 11/01/2018 7:22 AM Estimated Blood Loss: Estimated blood loss: none.
--- NOTE | 2018-11-01 09:21 | REP ---
ERCP: HISTORY: ERCP. Stent removal. 2 minutes 40 seconds of fluoroscopy time is reported. FINDINGS: A sequence of 23 last image hold fluoroscopically obtained into procedural spot radiographs of the right upper quadrant document endoscopic removal of the common bile duct stent and common bile duct cannulation and contrast injection. The no filling defect or stricture is apparent. Electronically Signed by Louie Cuevas MD 11/01/2018 10:43 A
[2018-11-01 09:40] VITALS: BP 131/81
== END 2018-11-01 09:55 | disposition home or self-care (01) ==
LOC: M SDC 07:15
PROVIDERS: ATTEND Internal Medicine Gastroenterology
DX: Z46.59 Encounter for fitting and adjustment of other gastrointestinal appliance and device (principal); R17 Unspecified jaundice; E78.5 Hyperlipidemia, unspecified; E03.9 Hypothyroidism, unspecified; K21.9 Gastro-esophageal reflux disease without esophagitis; G47.30 Sleep apnea, unspecified; Z79.899 Other long term (current) drug therapy; F17.220 Nicotine dependence, chewing tobacco, uncomplicated
CPT/HCPCS: 43261; 43264; 43275; 76000; 88104; 88305; 93005; C1887; J1100; J1885; J2250; J2405; J3010; Q9967

== ENCOUNTER → 2019-05-04 | Outpatient (CLI) | payer OTHER ==
[~2019-05-04] MED LIST changes: -ISOVUE-300 61% 50ML VIAL (Q9967) As Ordered ONE; -KETAMINE HCL 200 MG/20 ML VIAL As Ordered ONE; -LIDOCAINE 1% MDV 20ML VIAL SQ PRN; -LIDOCAINE 2% INJ 100 MG/5 ML SDV (FOR ANES.) As Ordered ONE; -LR 1,000 ML IV ONE; -MIDAZOLAM INJ 2 MG/2 ML VIAL (J2250) As Ordered ONE; -NS 1,000 ML IV ONE; -ONDANSETRON 4MG/2ML VIAL (J2405) As Ordered ONE; -PROPOFOL 200 MG/20 ML VIAL As Ordered ONE; -ROCURONIUM BROMIDE 50 MG/5 ML VIAL As Ordered ONE; +ZETI10TA16 PO; -ZETI10TA30 PO; -fentaNYL 100 MCG/2 ML INJECTION (J3010) As Ordered ONE
[2019-05-04 15:51] LABS: ALBUMIN 3.8 GM/DL (3.2-5.2); ALT/SGPT 34 U/L (12-78); BILIRUBIN,DIRECT < 0.1 MG/DL (0.0-0.2); BILIRUBIN,TOTAL 0.4 MG/DL (0.2-1.0); TOTAL PROTEIN 6.4 GM/DL (6.4-8.2)
--- NOTE | 2019-05-05 11:30 | REP ---
MRCP EXAM: MRI ABDOMEN WITHOUT CONTRAST: HISTORY: Obstruction of the bile duct. COMPARISON STUDY: September 01, 2018. Prior study demonstrated biliary dilation and parapelvic renal cysts. TECHNIQUE: T2-weighted axial and coronal MR images are acquired. MRCP acquisition is performed, and maximum intensity projection images are generated. MRCP FINDINGS: There is no filling defect within the lumen of the gallbladder visible. The main pancreatic duct is normal in caliber and appearance. There is a small subcentimeter cyst in the left lobe of the liver, and parapelvic renal cysts are again noted. The common bile duct is again seen to be mildly dilated, measuring 9-10 mm in greatest diameter. No evidence of choledocholithiasis is seen. No pancreatic or ampullary mass lesion is observed. The common bile duct dilation is less prominent than on the September 01, 2018 study. No other abnormality. IMPRESSION: Mildly dilated extrahepatic biliary tree. Somewhat improved from the appearance September 01, 2018. There is no evidence of cholelithiasis, choledocholithiasis, pancreatic or ampullary mass, or abnormal fluid collection. There is a small left lobe hepatic cyst, and there are peripelvic renal cysts. Electronically Signed by Louie Cuevas MD 05/05/2019 11:34 A
== END ==
LOC: M RAD 14:45
PROVIDERS: ATTEND Internal Medicine Gastroenterology
DX: N28.1 Cyst of kidney, acquired (principal); K83.1 Obstruction of bile duct; R17 Unspecified jaundice